=== PATIENT | female | born 1995 | race Two or more races ===

== ENCOUNTER 2016-10-07 09:33 | Emergency (ER) | payer OTHER ==
[2016-10-07 09:41] VITALS: BP 147/83; TEMP 98.6; BMI 26.9
[2016-10-07] MEDS ORDERED: IBUPROFEN 400 MG TABLET (FP) PO ONE ×2 (10:17→10:21)
--- NOTE | 2016-10-07 10:48 | PDOC ---
History of Present Illness - History of Present Illness Initial Comments: 10/07/16 10:48 The patient is a 21 year old female, with no significant past medical history, who presents to the emergency department with nasal congestion, runny nose, throat pain, cough, fever, and headache for 5 days. She states her runny nose began first, her throat pain second, and the fever and cough developed within the last two days. She states that when she blows her nose her mucus is green with some blood. She also reports a very dry nose at night. The patient reports her cough is intermittently productive of green sputum. She reports a fever a couple of days ago and states she feels feverish today.She reports taking motrin last night before bed and has not taken anything this am. No recent travel or sick contacts. She denies chest pain, shortness of breath, and dizziness. She denies nausea, vomit, diarrhea and constipation. She denies dysuria, frequency, urgency and hematuria. Allergies: NKDA PCP - Dr. Berry <Betsy Gustafson - Last Filed: 10/07/16 10:48> <Reinaldo Rios - Last Filed: 10/09/16 07:39> - General Chief Complaint: Pain Stated Complaint: LIGHTHEADED, HEADACHES, JAW PAIN Time Seen by Provider: 10/07/16 09:58 Past History <Betsy Gustafson - Last Filed: 10/07/16 10:48> - Past Medical History Other medical history: NONE - Psycho/Social/Smoking Cessation Hx Anxiety: No Suicidal Ideation: No Smoking Status: No Smoking History: Never smoked Number of Cigarettes Smoked Daily: 0 Hx Alcohol Use: No Drug/Substance Use Hx: No Substance Use Type: None <Reinadlo Rios - Last Filed: 10/09/16 07:39> - Past Medical History Allergies/Adverse Reactions: Allergies Allergy/AdvReac Type Severity Reaction Status Date / Time fish derived Allergy Verified 10/07/16 09:41 Home Medications: Ambulatory Orders No Home Medications 0 dose .ROUTE UTDICT 07/27/13 Review of Systems - Review of Systems Able to Perform ROS?: Yes Comments:: 10/07/16 10:49 CONSTITUTIONAL: (+) subjective Fever and Chills, No reported: Diaphoresis, Generalized Weakness , Malaise, Loss of Appetite HEENT: (+) Rhinorrhea, Nasal Congestion, Throat Pain, No reported: Throat Swelling, Difficulty Swallowing, Mouth Swelling, Ear Pain, Eye Pain, Visual Changes CARDIOVASCULAR: No reported: Chest Pain, Syncope, Palpitations, Irregular Heart Rate, Lightheadedness, Peripheral Edema RESPIRATORY: (+) Cough, No reported: Shortness of Breath, SOB with Exertion, Orthopnea, Wheezing, Stridor, Hemoptysis GASTROINTESTINAL: No reported: Abdominal pain, Abdominal Distension, Nausea, Vomiting, Diarrhea, Constipation, Melena, Hematochezia GENITOURINARY: No reported: Dysuria, Frequency, Urgency, Hesitancy, Flank Pain, Genital Pain MUSCULOSKELETAL: No reported: Myalgia, Arthralgia, Joint Swelling, Back pain, Neck Pain SKIN: No reported: Rash, Itching, Pallor HEMEATOLOGIC/IMMUNOLOGIC: No reported: Easy Bleeding, Easy Bruising, Lymphadenopathy, Frequent infections ENDOCRINE: No reported: Unexplained Weight Gain, Unexplained Weight Loss, Heat Intolerance , Cold Intolerance NEUROLOGIC: (+) Dizziness. No reported: Headache, Focal Weakness, Paresthesias, Vertigo, Lightheadedness, Unsteady Gait, Seizure, Mental Status Changes, Incontinence PSYCHIATRIC: No reported: Anxiety, Depression <Betsy Gustafson - Last Filed: 10/07/16 10:48> *Physical Exam - Vital Signs Last Vital Signs Temp Pulse Resp BP Pulse Ox 98.6 F 116 H 20 147/83 98 10/07/16 09:38 10/07/16 09:38 10/07/16 09:38 10/07/16 09:38 10/07/16 09:38 - Physical Exam Comments: 10/07/16 10:49 GENERAL: The patient is awake, alert, and fully oriented, Nontoxic - in no acute distress. HEAD: Normocephalic, atraumatic. EYES: extraocular movements intact, sclera anicteric, conjunctiva clear. ENT: (+) Mildly erythematous, White exudates in posterior oropharynx. Nasal voice, Moist mucous membranes. NECK: Normal range of motion, supple LUNGS: Breath sounds equal, clear to auscultation bilaterally. No wheezes, no rhonchi, no rales. HEART: Regular rate and rhythm, without murmur, rub or gallop. ABDOMEN: Soft, nontender, normoactive bowel sounds. No guarding, no rebound.No CVA tenderness EXTREMITIES: Normal range of motion, no edema. No clubbing or cyanosis. No cords, erythema, or tenderness. NEUROLOGICAL: No facial assymetry, Normal speech, PSYCH: Normal mood, normal affect. SKIN: Warm, Dry, normal turgor, <Betsy Gustafson - Last Filed: 10/07/16 10:48> - Vital Signs Last Vital Signs Temp Pulse Resp BP Pulse Ox 98.6 F 116 H 20 147/83 98 10/07/16 09:38 10/07/16 09:38 10/07/16 09:38 10/07/16 09:38 10/07/16 09:38 <Reinaldo Rios - Last Filed: 10/09/16 07:39> Medical Decision Making - Medical Decision Making 10/07/16 10:23 21y F no pmhx presents with complaint of greenish nasal congestion, sore throat , mild cough x 5 days associated with fever to 102. Suspect viral syndrome pts throat uis mildly erhtnemadous with some whitish exudates - will do rapid strep pts HR noted at 116 at triage, on my reassessment, it is approx 100. Suspect a viral URI will give motrin for sypmtomatic releif 10/07/16 11:05 The patient's rapid strep is negative Vital signs normal Supportive management at home Will discharge patient to follow up with her primary care doctor I discussed the physical exam findings, ancillary test results and final diagnoses with the patient. I answered all of the patient's questions. The patient was satisfied with the care received and felt comfortable with the discharge plan and treatment plan. The patient will call their primary care physician within 24 hours to arrange follow-up and will return to the Emergency Department with any new, persistent or worsening symptoms. <Reinaldo Rios - Last Filed: 10/09/16 07:39> *DC/Admit/Observation/Transfer - Attestations Scribe Attestion: 10/07/16 10:49 Documentation prepared by Betsy Gustafson, acting as medical dir for Reinaldo Rios MD, MD <Betsy Gustafson - Last Filed: 10/07/16 10:48> - Discharge Dispostion Admit: No <Reinaldo Rios - Last Filed: 10/09/16 07:39> Diagnosis at time of Disposition: Upper respiratory infection Qualifiers: URI type: acute nasopharyngitis (common cold) Qualified Code(s): J00 - Acute nasopharyngitis [common cold] - Discharge Dispostion Disposition: HOME Condition at time of disposition: Improved - Referrals Referrals: Chaz Berry MD [Primary Care Provider] - - Patient Instructions Printed Discharge Instructions: DI for Pharyngitis/Tonsillopharyngitis -- Adult , DI for Common Cold Additional Instructions: Return to the emergency department immediately with ANY new, persistent or worsening symptoms. You may take some sudafed for your nasal congestion. You can also use a netipot for your congestion. Take ibuprofen/tylenol for your sore throat. You MUST call and follow up with your doctor in 2-3 days for further evaluation of your symptoms. Results were discussed with you. Please make sure your doctor reviews the results of your emergency evaluation. Print Language: MAORI
[2016-10-07 11:09] VITALS: PULSE 90
== END 2016-10-07 11:15 | disposition home or self-care (01) ==
LOC: JERFT 09:33
DX: J00 Acute nasopharyngitis [common cold] (principal)
CPT/HCPCS: 87070; 87430; 99283-25

== ENCOUNTER 2017-10-05 03:56 | Emergency (ER) | payer OTHER ==
--- NOTE | 2017-10-05 04:13 | PDOC ---
History of Present Illness - General Stated Complaint: WEAKNESS,NAUSEA,PAIN Time Seen by Provider: 10/05/17 03:58 History Source: Patient Exam Limitations: No Limitations - History of Present Illness Initial Comments: 10/05/17 04:09 22yo Female patient with no significant past medical history presents to ED with multiple complaints. Patient states nasal congestion, fatigue, runny nose, chills, body aches, subjective fever, headache that began 4-5 days ago. Patient also states her mother is sick with same symptoms. LNMP: 2 weeks ago. Patient denies any other complaints at this time. Timing/Duration: reports: constant. denies: just prior to arrival, other, changing over time, getting worse, gone now, intermittent, week, yesterday, this afternoon, this evening, this morning Severity: reports: mild. denies: moderate, severe Episode Description: See HPI Possible Cause: No: no prior episodes, other, allergen exposure, chronic episodes, frequent episodes, illness exposure, irritant gases exposure, occasional episodes, smoke exposure, unknown cause Modifying Factors: worse with: activity, albuterol inhaler, albuterol nebulizer , antibiotics, coughing, lying down, oxygen, rest, other Associated Symptoms: reports: cough, fever/chills, headache, nasal congestion, nasal drainage, sore throat. denies: denies symptoms, chest pain/soreness, dizziness, earache, facial pain, lightheadedness, muscle aches, shortness of breath, sinus infection, wheezing, other Past History - Travel Traveled outside of the country in the last 30 days: No Close contact w/someone who was outside of country & ill: No - Past Medical History Allergies/Adverse Reactions: Allergies Allergy/AdvReac Type Severity Reaction Status Date / Time fish derived Allergy Verified 10/07/16 09:41 Home Medications: Ambulatory Orders Azithromycin [Zithromax -] 250 mg PO DAILY #4 tablet 10/05/17 Prednisone [Prednisone 50 MG TABLETS] 50 mg PO DAILY #4 tablet 10/05/17 - Suicide/Smoking/Psychosocial Hx Smoking Status: No Smoking History: Never smoked Number of Cigarettes Smoked Daily: 0 Hx Alcohol Use: No Drug/Substance Use Hx: No Substance Use Type: None Respiratory Specific PMHX - Complaint Specific PMHX Angina: No Bronchitis: No Pneumonia: No Pulmonary Embolus: No TB (Tuberculosis): No Review of Systems - Review of Systems Able to Perform ROS?: Yes Is the patient limited Mohawk proficient: No Constitutional: Yes: Chills, Fever, Weakness HEENTM: Yes: Nose Congestion, Throat Pain Respiratory: Yes: Cough. No: Shortness of Breath, Stridor, Wheezing Cardiac (ROS): No: Chest Tightness ABD/GI: No: Diarrhea, Nausea, Vomiting : No: Dysuria, Hematuria Musculoskeletal: No: Back Pain Neurological: Yes: Headache All Other Systems: Reviewed and Negative *Physical Exam - Physical Exam General Appearance: Yes: Nourished, Appropriately Dressed. No: Apparent Distress, Mild Distress, Moderate Distress, Severe Distress HEENT: positive: EOMI, ENDER, Normal ENT Inspection, Normal Voice, Symmetrical, TMs Normal, Pharynx Normal, Nasal Congestion, Rhinorrhea. negative: Pharyngeal Erythema, Tonsillar Exudate, Tonsillar Erythema, Sinus Tenderness, TM Bulging, TM Erythema Neck: positive: Trachea midline, Supple. negative: Lymphadenopathy (R), Lymphadenopathy (L) Respiratory/Chest: positive: Lungs Clear, Normal Breath Sounds. negative: Chest Tender, Respiratory Distress, Accessory Muscle Use, Labored Respiration, Rapid RR, Paradoxal Breathing, Rhonchi, Stridor, Wheezing Cardiovascular: positive: Regular Rhythm, Regular Rate Musculoskeletal: positive: Normal Inspection. negative: CVA Tenderness, Decreased Range of Motion, Vertebral Tenderness Extremity: positive: Normal Capillary Refill, Normal Inspection, Normal Range of Motion. negative: Pedal Edema, Swelling, Calf Tenderness, Erythema, Inflammation Integumentary: positive: Normal Color, Dry, Warm Neurologic: positive: auto rebuilder II-XII NML intact, Fully Oriented, Alert, Normal Mood/ Affect, Normal Response, Motor Strength 5/5 ED Treatment Course - RADIOLOGY Radiology Studies Ordered: Category Date Time Status CHEST PA & LAT [RAD] Stat Radiology 10/05/17 04:08 Ordered *DC/Admit/Observation/Transfer Diagnosis at time of Disposition: Upper respiratory infection Qualifiers: URI type: unspecified viral URI Qualified Code(s): J06.9 - Acute upper respiratory infection, unspecified - Discharge Dispostion Disposition: HOME Condition at time of disposition: Stable Admit: No - Prescriptions Prescriptions: Azithromycin [Zithromax -] 250 mg PO DAILY #4 tablet Prednisone [Prednisone 50 MG TABLETS] 50 mg PO DAILY #4 tablet - Referrals Referrals: Thalappillil,Ayaka, MD [Primary Care Provider] - - Patient Instructions Printed Discharge Instructions: DI for Viral Upper Respiratory Infection -- Adult Additional Instructions: Take medications as prescribe. Get plenty rest. Drink lots of water. Tylenol or Motrin or fever or pain as needed. Return if symptoms worsen or any concerns for further evaluation. Print Language: AZERI - Post Discharge Activity Forms/Work/School Notes: Back to Work
[2017-10-05 05:56] VITALS: BP 142/70; PULSE 124; TEMP 100.8; BMI 23.3
[2017-10-05 06:16] LABS: URINE APPEARANCE CLEAR; URINE BILIRUBIN NEGATIVE (NEGATIVE); URINE BLOOD NEGATIVE (NEGATIVE); URINE COLOR COLORLESS; URINE GLUCOSE (UA) NEGATIVE (NEGATIVE); URINE KETONE NEGATIVE (NEGATIVE); URINE LEUK ESTERASE NEGATIVE (NEGATIVE); URINE NITRITE NEGATIVE (NEGATIVE); URINE PROTEIN NEGATIVE (NEGATIVE); URINE UROBILINOGEN NEGATIVE mg/dL (0.2-1.0)
[2017-10-05 06:19] LABS: HCG,QUALITATIVE URINE NEGATIVE
[2017-10-05] MEDS ORDERED: IBUPROFEN 600 MG TABLET (FP) PO ONE ×2 (06:36→06:48)
[2017-10-05] MEDS ORDERED: AZITHROMYCIN 250 MG TABLET PO ONE (06:36)
[2017-10-05] MEDS ORDERED: predniSONE 20 MG TABLET (UD) PO ONE (06:36)
[2017-10-05] MEDS ORDERED: AZITHROMYCIN 250 MG TABLET ONE (06:48)
[2017-10-05] MEDS ORDERED: predniSONE 20 MG TABLET (UD) ONE (06:48)
== END 2017-10-05 06:59 | disposition home or self-care (01) ==
LOC: JER 03:56
DX: J06.9 Acute upper respiratory infection, unspecified (principal)
CPT/HCPCS: 71046-TC; 81003; 84703; 87804; 99281-25

== ENCOUNTER 2018-12-21 13:29 | Emergency (ER) | payer BC ==
[2018-12-21 13:41] VITALS: BP 129/68; PULSE 85; TEMP 97.4; BMI 29.9
[2018-12-21] MEDS ORDERED: ACETAMINOPHEN 325 MG TABLET (FP) PO ONE (14:18)
[2018-12-21] MEDS ORDERED: ACETAMINOPHEN 325 MG TABLET (FP) ONE (14:21)
--- NOTE | 2018-12-21 14:26 | PDOC ---
History of Present Illness - General Chief Complaint: Back Pain Stated Complaint: PAIN Time Seen by Provider: 12/21/18 13:56 History Source: Patient Exam Limitations: No Limitations Past History - Past Medical History Allergies/Adverse Reactions: Allergies Allergy/AdvReac Type Severity Reaction Status Date / Time fish derived Allergy Verified 12/21/18 13:41 Home Medications: Ambulatory Orders NK [No Known Home Medication] 12/21/18 COPD: No - Suicide/Smoking/Psychosocial Hx Smoking Status: No Smoking History: Never smoked Have you smoked in the past 12 months: No Number of Cigarettes Smoked Daily: 0 Information on smoking cessation initiated: No Hx Alcohol Use: No Drug/Substance Use Hx: No Substance Use Type: None Review of Systems - Review of Systems Able to Perform ROS?: Yes Comments:: 12/21/18 15:05 CONSTITUTIONAL: Absent: fever, chills, diaphoresis, generalized weakness, malaise, loss of appetite HEENT: Absent: rhinorrhea, nasal congestion, throat pain, throat swelling, difficulty swallowing, mouth swelling, ear pain, eye pain, visual Changes CARDIOVASCULAR: Absent: chest pain, loss of consciousness, palpitations, irregular heart rate, peripheral edema RESPIRATORY: Absent: cough, shortness of breath, dyspnea with exertion, orthopnea, wheezing, stridor, hemoptysis GASTROINTESTINAL: Absent: abdominal pain, abdominal distension, nausea, vomiting, diarrhea, constipation, melena, hematochezia GENITOURINARY: Absent: dysuria, frequency, urgency, hesitancy, hematuria, flank pain, genital pain MUSCULOSKELETAL: Present: pain to the L buttock Absent: arthralgia, joint swelling SKIN: Absent: rash, itching, pallor HEMATOLOGIC/IMMUNOLOGIC: Absent: easy bleeding, easy bruising, lymphadenopathy, frequent infections ENDOCRINE: Absent: unexplained weight gain, unexplained weight loss, heat intolerance, cold intolerance NEUROLOGIC: Absent: headache, focal weakness or paresthesias, dizziness, unsteady gait, seizure, mental status changes, bladder or bowel incontinence PSYCHIATRIC: Absent: anxiety, depression, suicidal or homicidal ideation, hallucinations. Is the patient limited Thai proficient: No *Physical Exam - Vital Signs Last Vital Signs Temp Pulse Resp BP Pulse Ox 97.4 F L 85 16 129/68 100 12/21/18 13:37 12/21/18 13:37 12/21/18 13:37 12/21/18 13:37 12/21/18 13:37 - Physical Exam Comments: 12/21/18 15:06 GENERAL: Well developed, well nourished. Awake and alert. No acute distress. NECK: Supple. Full ROM. No JVD. Carotid pulses 2+ and symmetric, without bruits. No thyromegaly. No lymphadenopathy. ABDOMINAL: Soft. Non-tender. Non-distended. No rebound or guarding. No organomegaly. Normoactive bowel sounds. MUSCULOSKELETAL TTP of the L buttock. (+) straight leg raise test on the L. No midline tenderness.Normal range of motion at all joints. No bony deformities or tenderness. No CVA tenderness. EXTREMITIES: No cyanosis. No clubbing. No edema. No calf tenderness. SKIN: Warm and dry. Normal capillary refill. No rashes. No jaundice. NEUROLOGICAL: Alert, awake, appropriate. Cranial nerves 2-12 intact. No deficits to light touch and temperature in face, upper extremities and lower extremities. No motor deficits in the in face, upper extremities and lower extremities. Normoreflexic in the upper and lower extremities. Normal speech. Toes are down- going bilaterally. Gait is normal without ataxia. PSYCHIATRIC: Cooperative. Good eye contact. Appropriate mood and affect. Medical Decision Making - Medical Decision Making 12/21/18 15:08 The patient is a 23-year-old female , 11 weeks who presents to the emergency department today for pain to her left buttock. She states that when she moves in certain direction she feels the pain down her leg. She is not taking any medication for the pain. Denies fevers, chills, numbness and tingling to the extremity, weakness to extremities, saddle anesthesia, bladder/ bowel incontinence, gait changes and vaginal bleeding. Patient's OB is Dr. Reyes. A/P: Sciatica On exam patient tenderness to left buttock and a positive straight leg raise test on the left. Consistent with sciatica. Tylenol given for pain. Defer imaging is patient is . Patient to follow-up with her OB this week. I discussed the physical exam findings, ancillary test results and final diagnoses with the patient. I answered all of the patient's questions. The patient was satisfied with the care received and felt comfortable with the discharge plan and treatment plan. The Patient agrees to follow up with the primary care physician/specialist within 24-72 hours. Return precautions were given. *DC/Admit/Observation/Transfer Diagnosis at time of Disposition: Sciatica Qualifiers: Laterality: left Qualified Code(s): M54.32 - Sciatica, left side - Discharge Dispostion Disposition: HOME Condition at time of disposition: Stable Decision to Admit order: No - Referrals Referrals: Ayaka aZpien MD [Primary Care Provider] - - Patient Instructions Printed Discharge Instructions: DI for Sciatica Additional Instructions: You have sciatica, causing your pain You may take Tylenol 650mg every 4 hours as needed for pain Warm baths and gentle stretching may help Follow up with your OB this week Return to the ED for any new or worsening symptoms. - Post Discharge Activity Forms/Work/School Notes: Back to Work
== END 2018-12-21 14:34 | disposition home or self-care (01) ==
LOC: JERFT 13:29
DX: O26.891 Other specified pregnancy related conditions, first trimester (principal); O99.351 Diseases of the nervous system complicating pregnancy, first trimester; M54.32 Sciatica, left side; Z3A.11 11 weeks gestation of pregnancy
CPT/HCPCS: 99281-25